=== PATIENT | female | born 1970 | race African-American/Black ===

== ENCOUNTER 2017-05-27 09:15 | Emergency (ER) | payer SELFPAY ==
[~2017-05-27] VITALS: Ht 170.2 cm; Wt 128.0 kg
[~2017-05-27 09:15] MED LIST: ONDA1TAB16 PO; TYLE3 PO
[2017-05-27 09:32] VITALS: BP 161/84; PULSE 80; RESP 16; TEMP 98.3; O2SAT 100
--- NOTE | 2017-05-27 09:46 | PD ---
HPI Chief Complaint: ENT Complaint Time Seen by Provider: 09:36 Travel History International Travel<30 days: No Contact w/Intl Traveler<30days: No Traveled to known affect area: No History of Present Illness HPI 47-year-old -[place] female presents emergency department with 3 day history of upper respiratory symptoms including sore throat, cough, hoarseness, postnasal drip, sinus pressure yesterday, and chest congestion and wheezing. Patient denies significant fever. No nausea or vomiting. No abdominal pain, urinary symptoms, or vaginal symptoms. No diarrhea. She has positive exposure at work. Patient is a non-smoker but has needed an inhaler in the past. Patient has no known drug allergies. PFSH Past Medical History Hx Anticoagulant Therapy: No Cardiovascular Problems: No Chemotherapy: No Cerebrovascular Accident: No Diabetes: No Diminished Hearing: No Respiratory: No Immunizations Current: No : 5 Para: 3 Miscarriage: 1 : 2 Dilation and Curettage (D&C): Yes Past Surgical History Gynecologic Surgery: Yes (D&C) Social History Alcohol Use: No Tobacco Use: No Substance Use: No Allergies-Medications (Allergen,Severity, Reaction): Coded Allergies: No Known Allergies (Verified , 08/01/15) Reported Meds & Prescriptions Reported Meds & Active Scripts Active Zofran Tab (Ondansetron HCl) 4 Mg Tab 4 Mg PO Q6 PRN Tylenol #3 (Acetaminophen/Codeine Phosphate) Acetaminophen 300/30 Codeine Tab 1 Tab PO Q6H PRN FOR PAIN Review of Systems Except as stated in HPI: all other systems reviewed are Neg General / Constitutional: Positive: Chills, No: Fever Eyes: No: Visual changes HENT: Positive: Headaches, Sore Throat, Rhinitis, Rhinorrhea, Congestion, Earache, Other, No: Vertigo, Lightheadedness, Nosebleed, Neck Stiffness, Neck Pain, Masses (Hoarse voice), Gingival Bleeding, Dental Difficulties, Ear Discharge Cardiovascular: No: Chest Pain or Discomfort Respiratory: Positive: Cough, Wheezing, No: Shortness of Breath Gastrointestinal: No: Nausea, Vomiting, Diarrhea, Abdominal Pain Genitourinary: No: Dysuria Musculoskeletal: No: Pain Skin: No Rash Neurologic: No: Weakness Psychiatric: No: Depression Endocrine: No: Polydipsia Hematologic/Lymphatic: No: Easy Bruising Physical Exam Narrative GENERAL: Patient appears in no obvious distress. She is obviously hoarse. SKIN: Warm and dry. Normal color. Normal turgor HEAD: Atraumatic. Normocephalic. Moderate sinus tenderness to palpation to the maxillary sinuses EYES: Pupils equal and round. No scleral icterus. No injection or drainage. ENT: No nasal bleeding or discharge. Mucous membranes pink and moist. TMs are dull bilaterally with mild injection. Posterior pharynx is injected with mild swelling and postnasal drip noted. No exudate or tonsillitis is noted. Airway is patent. NECK: Trachea midline. Supple and nontender. CARDIOVASCULAR: Regular rate and rhythm. RESPIRATORY: No accessory muscle use. Mild diffuse wheezes throughout to auscultation. Breath sounds equal bilaterally. GASTROINTESTINAL: Abdomen soft, non-tender, nondistended. Hepatic and splenic margins not palpable. MUSCULOSKELETAL: Extremities without clubbing, cyanosis, or edema. No obvious deformities. NEUROLOGICAL: Awake and alert. No obvious cranial nerve deficits. Motor grossly within normal limits. Five out of 5 muscle strength in the arms and legs. Normal speech. PSYCHIATRIC: Appropriate mood and affect; insight and judgment normal. Data Data Last Documented VS Vital Signs Date Time Temp Pulse Resp B/P (MAP) Pulse Ox O2 Delivery O2 Flow Rate FiO2 05/27/17 09:32 98.3 80 16 161/84 (109) 100 MDM Medical Decision Making Medical Screen Exam Complete: Yes Emergency Medical Condition: Yes Differential Diagnosis Upper respiratory infection. Sinusitis with postnasal drip. Wheezy bronchitis. Narrative Course Patient is given amoxicillin 875 twice daily 10 days. Patient is given albuterol metered-dose inhaler 2 puffs every 4-6 hours as needed cough and wheeze. Patient started on Flonase nasal spray 2 sprays each nostril daily. Patient to return to work tomorrow. Patient can return if symptoms worsen as needed Diagnosis Primary Impression: Acute wheezy bronchitis Additional Impression: Acute maxillary sinusitis Qualified Codes: J01.00 - Acute maxillary sinusitis, unspecified Patient Instructions: General Instructions, How to Use a Metered-Dose Inhaler ( DC), Rhinosinusitis (ED), Wheezing (ED) Departure Forms: Work Release Enter return to work date: May 28, 2017 Additional Instructions: Patient is given amoxicillin 875 twice daily 10 days. Patient is given albuterol metered-dose inhaler 2 puffs every 4-6 hours as needed cough and wheeze. Patient started on Flonase nasal spray 2 sprays each nostril daily. Patient to return to work tomorrow. Patient can return if symptoms worsen as needed Med/Other Pt SpecificInfo: Prescription(s) given Disposition: 01 DISCHARGE HOME Condition: Stable Jorge Draper May 27, 2017 09:46
[2017-05-27] MEDS ORDERED: VENTAER INH (09:49)
[2017-05-27] MEDS ORDERED: FLUT1SPR5 EACH NARE (09:49)
[2017-05-27] MEDS ORDERED: AMOX875T PO (09:49)
== END 2017-05-27 10:08 | disposition home or self-care (01) ==
LOC: NEPK 09:15
DX: J20.9 Acute bronchitis, unspecified (principal); J01.00 Acute maxillary sinusitis, unspecified
CPT/HCPCS: 99283